=== PATIENT | female | born 1995 | race Caucasian/White ===

== ENCOUNTER 2018-11-12 14:44 | Emergency (ER) | payer OTHER ==
[~2018-11-12] VITALS: Ht 160 cm; Wt 54.6 kg
[2018-11-12 14:53] VITALS: Ht 160 cm; Wt 54.6 kg
[2018-11-12 18:09] VITALS: BP 128/65
== END 2018-11-12 18:09 | disposition home or self-care (01) ==
LOC: ED 14:44
DX: B37.3 Candidiasis of vulva and vagina (principal); Z88.0 Allergy status to penicillin
CPT/HCPCS: 87491; 87591